=== PATIENT | male | born 1970 | race African-American/Black ===

== ENCOUNTER 2017-01-18 19:14 | Emergency (ER) | payer MEDICAID ==
[~2017-01-18] VITALS: Ht 180.3 cm; Wt 63.5 kg
[2017-01-18 20:00] VITALS: BP 132/74
[2017-01-18] MEDS ORDERED: Hydrogen Peroxide 473ml Bottle TOPIC ONE (20:02)
[2017-01-18] MEDS ORDERED: CEPHALEXIN500 MG ORAL (20:16)
[2017-01-18] MEDS ORDERED: TRAMADOL HCL50 MG ORAL (20:16)
[2017-01-18] MEDS ORDERED: IBUPROFEN600 MG ORAL (20:16)
[2017-01-18 20:30] VITALS: BP 121/68
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
== END 2017-01-18 20:32 | disposition home or self-care (01) ==
LOC: EMR 19:48
DX: S51.812D Laceration without foreign body of left forearm, subsequent encounter (principal); W25.XXXD Contact with sharp glass, subsequent encounter; Z48.02 Encounter for removal of sutures
CPT/HCPCS: 99282

== ENCOUNTER 2018-04-11 08:54 | Emergency (ER) | payer MEDICAID, OTHER ==
[~2018-04-11] VITALS: Ht 180.3 cm; Wt 72.6 kg
[~2018-04-11 08:54] MED LIST: CEPHALEXIN500 MG ORAL; IBUPROFEN600 MG ORAL; TRAMADOL HCL50 MG ORAL
[2018-04-11] MEDS ORDERED: Hydrogen Peroxide 473ml Bottle TOPIC ONE ×2 (09:19→09:30)
[2018-04-11] MEDS ORDERED: Tetanus/Diptheria/Pertussis Vaccine 0.5ml Syr IM ONE (09:45)
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
[2018-04-11 10:15] LABS: BASOPHILS % (AUTO) 1.7 % (0.0-2.0); EOSINOPHILS % (AUTO) 1.2 % (0.0-3.0); HEMATOCRIT 44.2 % (42.0-52.0); HEMOGLOBIN 14.8 G/DL (14.2-18.0); MEAN CORPUSCULAR VOLUME 85 FL (80-99); MONOCYTES % (AUTO) 6.5 % (1.0-10.0); NEUTROPHILS % (AUTO) 63.6 % (45.0-75.0); PLATELET COUNT 271 K/UL (150-450); RED BLOOD COUNT 5.17 M/UL (4.70-6.10); RED CELL DISTRIBUTION WIDTH 11.6 % (11.6-14.8); WHITE BLOOD COUNT 9.6 K/UL (4.8-10.8)
[2018-04-11 10:24] LABS: ANION GAP 13 mmol/L (5-15); BLOOD UREA NITROGEN 12 mg/dL (7-18); CALCIUM 8.8 MG/DL (8.5-10.1); CARBON DIOXIDE 24 MMOL/L (21-32); CHLORIDE 103 MMOL/L (98-107); POTASSIUM 3.9 MMOL/L (3.5-5.1); SODIUM 140 MMOL/L (136-145)
[2018-04-11 10:54] VITALS: BP 110/81
[2018-04-11 12:49] VITALS: BP 118/79
[2018-04-11 14:07] VITALS: BP 122/81
[2018-04-11 15:47] VITALS: BP 128/79
[2018-04-11 15:48] VITALS: BP 128/79
== END 2018-04-11 15:48 | disposition short-term general hospital (02) ==
LOC: EMR 09:23 → 4E 10:10 → UNDOADMIN 10:10 → EDBEDREQ 10:59 → EMR 15:48
DX: S61.211A Laceration without foreign body of left index finger without damage to nail, initial encounter (principal); S61.213A Laceration without foreign body of left middle finger without damage to nail, initial encounter; S61.215A Laceration without foreign body of left ring finger without damage to nail, initial encounter; S66.121A Laceration of flexor muscle, fascia and tendon of left index finger at wrist and hand level, initial encounter; S66.123A Laceration of flexor muscle, fascia and tendon of left middle finger at wrist and hand level, initial encounter; S66.125A Laceration of flexor muscle, fascia and tendon of left ring finger at wrist and hand level, initial encounter; X99.1XXA Assault by knife, initial encounter; Y92.9 Unspecified place or not applicable; Z23 Encounter for immunization
CPT/HCPCS: 36415; 80048; 85025; 90471; 90715; 96374; 99285; J0690

== ENCOUNTER → 2018-06-16 | Emergency (ER) | payer OTHER ==
[~2018-06-16] VITALS: Ht 180.3 cm; Wt 65.8 kg
[2018-06-16 22:40] VITALS: BP 139/89
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
[2018-06-16 23:02] VITALS: BP 142/88
== END ==
LOC: EDUNIT# 22:32 → EDBD 22:40 → EMR 22:48
DX: F14.10 Cocaine abuse, uncomplicated (principal); Z04.89 Encounter for examination and observation for other specified reasons
CPT/HCPCS: 99282